=== PATIENT | female | born 1985 | race American Indian/Alaskan Native ===

== ENCOUNTER 2016-10-19 18:22 | Emergency (ER) | payer OTHER ==
[2016-10-19 18:44] VITALS: BP 139/81
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
== END 2016-10-19 23:17 | disposition home or self-care (01) ==
LOC: ED 18:22
DX: M25.512 Pain in left shoulder (principal); M54.2 Cervicalgia; M54.9 Dorsalgia, unspecified; V44.6XXA Car passenger injured in collision with heavy transport vehicle or bus in traffic accident, initial encounter; Y93.9 Activity, unspecified; Y99.9 Unspecified external cause status; Y92.410 Unspecified street and highway as the place of occurrence of the external cause
CPT/HCPCS: 99282

== ENCOUNTER 2018-10-24 13:42 | Emergency (ER) | payer OTHER ==
[2018-10-24 14:13] VITALS: BP 117/80
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
[2018-10-24 14:56] LABS: HCG Qualitative,Urine Negative (Negative)
[2018-10-24] MEDS ORDERED: TORADOL IM ONE (15:23)
--- NOTE | 2018-10-24 16:07 | Cat Scan Report ---
FINAL REPORT EXAM: CT LUMBAR SPINE WO CON HISTORY: back pain/injury TECHNIQUE: CT of the lumbar spine was performed without intravenous contrast. Reconstruction were in cluded in the coronal and sagittal planes. PRIORS: None. FINDINGS: There are five lumbar type vertebral bodies. Normal alignment. No compression fracture. The paravertebral soft tissues are normal. L1/2: No disc space loss. No spinal canal stenosis. No neural foraminal narrowing. There is mild left -sided facet arthropathy. L2/3: No disc space loss. No spinal canal stenosis. No neural foraminal narrowing. There is mild righ t-sided facet arthropathy. L3/4: No disc space loss. No spinal canal stenosis. No neural foraminal narrowing. No facet arthropat hy. L4/5: There is a mild posterior disc bulge. No spinal canal stenosis. No neural foraminal narrowing. Mild right facet arthropathy is seen. L5/S1: There is mild disc space loss and a small posterior disc bulge. No spinal canal stenosis. Ther e is mild bilateral neural foraminal narrowing. Mild facet arthropathy is seen. Post cholecystectomy. IMPRESSION: 1. No acute lumbar spine abnormality. 2. Mild degenerative changes of the lumbar spine, most severe at L5-S1 where there is mild bilateral neural foraminal narrowing. No spinal stenosis.
--- NOTE | 2018-10-24 16:16 | Cat Scan Report ---
FINAL REPORT EXAM: CT CERVICAL SPINE WO CON HISTORY: pain TECHNIQUE: CT of the cervical spine was performed without intravenous contrast. Reconstructions were included in the coronal and sagittal planes. PRIORS: None. FINDINGS: No cervical spine fracture or subluxation.Reversal of the cervical lordosis is likely related to miranda ent positioning or muscle spasm. The prevertebral soft tissues are normal. No degenerative change. No spinal canal stenosis or neural foraminal narrowing. IMPRESSION: No acute cervical spine fracture or subluxation.
== END 2018-10-24 17:25 | disposition home or self-care (01) ==
LOC: ED 13:42
DX: S16.1XXA Strain of muscle, fascia and tendon at neck level, initial encounter (principal); M54.5 Low back pain; Z90.49 Acquired absence of other specified parts of digestive tract; V89.2XXA Person injured in unspecified motor-vehicle accident, traffic, initial encounter; Y93.89 Activity, other specified; Y92.488 Other paved roadways as the place of occurrence of the external cause; Y99.8 Other external cause status
CPT/HCPCS: 72125; 72131; 81025; 96372; 99284; J1885

== ENCOUNTER 2019-02-24 19:33 | Emergency (ER) | payer OTHER ==
--- NOTE | 2019-02-25 01:40 | XRay Report ---
PROCEDURE: XR CHEST 1V AP TECHNIQUE: Chest radiograph single view. HISTORY: SOB COMPARISONS: None . FINDINGS: Heart: Normal. Mediastinum/Vessels: Normal. Lungs/Pleural space: Normal. Bony thorax: No acute osseous abnormality. Life support devices: None. IMPRESSION: No acute cardiopulmonary abnormality. This document is electronically signed by Samuel Link MD., February 25 2019 01:38:53 AM ET
--- NOTE | 2019-02-25 02:29 | Emergency Department Report ---
ED Shortness of Breath HPI - General Chief Complaint: Extremity Injury, Lower Stated Complaint: POST SURGERY LEG PAIN/LIGHTHEADED Time Seen by Provider: 02/25/19 01:03 Source: patient Mode of arrival: Ambulatory Limitations: No Limitations - History of Present Illness Initial Comments: Franchesca Arriaga...11:02 pm (DOWNTIME) Room 18 This 33-year-old female presents to ED with complaint of dizziness and shortness of breath 1 day. Patient has no other medical history. She reports that she underwent surgery for breast reduction approximately one week ago. Patient states last night she began to experience lightheadedness, cramping in the left calf, and dyspnea on exertion. Patient states the surgeon and had her taking iron pills because she lost blood during surgery. Patient reports surgery was done in the [place], [place]. Patient denies cough, fever, chest pain. Reports urinary frequency. MD Complaint: shortness of breath -: days(s) (1) Severity: moderate Improves With: nothing Worsens With: exertion Associated Symptoms: lower extremity pain Treatments Prior to Arrival: none - Related Data Home Oxygen Therapy: No Previous Rx's Medication Instructions Recorded Last Taken Type Naproxen [Naprosyn TAB] 500 mg PO BID #20 tablet 10/19/16 Unknown Rx methOCARBAMOL [Robaxin TAB] 500 mg PO BID #20 tab 10/19/16 Unknown Rx Cyclobenzaprine [Flexeril 10mg] 10 mg PO Q12H PRN #14 tablet 10/24/18 Unknown Rx Ibuprofen [Motrin] 800 mg PO Q8HR PRN #12 tablet 10/24/18 Unknown Rx Allergies Allergy/AdvReac Type Severity Reaction Status Date / Time No Known Allergies Allergy Verified 10/24/18 14:10 ED Review of Systems ROS: Stated complaint: POST SURGERY LEG PAIN/LIGHTHEADED Other details as noted in HPI Comment: All other systems reviewed and negative Constitutional: denies: chills, fever Respiratory: shortness of breath. denies: cough Cardiovascular: denies: chest pain Gastrointestinal: denies: nausea, vomiting Genitourinary: frequency Musculoskeletal: other (reports lower extremity pain and swelling) Neurological: other (reports dizziness) ED Past Medical Hx - Surgical History Hx Cholecystectomy: Yes - Social History Smoking Status: Never Smoker Substance Use Type: None - Medications Home Medications: Home Medications Medication Instructions Recorded Confirmed Last Taken Type Naproxen [Naprosyn TAB] 500 mg PO BID #20 tablet 10/19/16 Unknown Rx methOCARBAMOL [Robaxin TAB] 500 mg PO BID #20 tab 10/19/16 Unknown Rx Cyclobenzaprine [Flexeril 10mg] 10 mg PO Q12H PRN #14 tablet 10/24/18 Unknown Rx Ibuprofen [Motrin] 800 mg PO Q8HR PRN #12 tablet 10/24/18 Unknown Rx ED Physical Exam - General Limitations: No Limitations General appearance: alert, in no apparent distress, obese - Head Head exam: Present: atraumatic, normocephalic - Eye Eye exam: Present: normal appearance - ENT ENT exam: Present: mucous membranes moist - Neck Neck exam: Present: normal inspection - Respiratory Respiratory exam: Present: normal lung sounds bilaterally. Absent: respiratory distress - Cardiovascular Cardiovascular Exam: Present: regular rate, normal rhythm - GI/Abdominal GI/Abdominal exam: Present: soft. Absent: distended, tenderness - Extremities Exam Extremities exam: Present: calf tenderness. Absent: pedal edema - Neurological Exam Neurological exam: Present: alert, oriented X3, CN II-XII intact, normal gait. Absent: motor sensory deficit - Psychiatric Psychiatric exam: Present: normal affect, normal mood - Skin Skin exam: Present: warm, dry, intact, normal color. Absent: rash ED Course Vital Signs 02/25/19 00:45 Temperature 98.4 F Pulse Rate 80 Respiratory 20 Rate Blood Pressure 126/75 [Left] O2 Sat by Pulse 97 Oximetry ED Medical Decision Making - EKG Data -: EKG Interpreted by Ct EKG shows normal: sinus rhythm, axis, intervals, QRS complexes, ST-T waves Rate: normal - EKG Data Interpretation: no acute changes - Radiology Data Radiology results: report reviewed, image reviewed - Medical Decision Making 33-year-old female status post breast reduction surgery last week presents to ED with shortness of breath, dizziness, lower extremity pain and swelling. Vital signs normal temperature and ED stay, patient not tachycardic, not tachypneic, afebrile. Patient states she had an appointment with her breast surgeon earlier today, dressings were changed, and everything looked as if it were healing well. Patient has a WBC count of 20, however denies any fever or purulent drainage from breasts. Due to patient's reported symptoms, PE is definitely in the differential due to back pain or shortness of breath. Orthostatic vital signs were done which were normal, patient is not orthostatic. Hemoglobin 10.8. Chest x-ray negative for any pulmonary edema or pneumonia. EKG and troponin normal. D-dimer also normal. However, in the setting of recent surgery, leg pain and shortness of breath, decision was made to obtain CT of the chest. Unable to obtain appropriate IV access, so a VQ scan was ordered. However patient refused this study. Patient decides to leave AMA, states she is feeling much better, states she ambulated several bathroom and did not feel. Patient prefers to follow-up with her PCP tomorrow. Explained to pt the possibility of a PE, patient understands the risk of this diagnosis. AMA form signed. Vital signs normal. - Differential Diagnosis DVT, PE, pneumonia, ACS, UTI Critical care attestation.: If time is entered above; I have spent that time in minutes in the direct care of this critically ill patient, excluding procedure time. ED Disposition Clinical Impression: Lower extremity pain, left, Dyspnea, Dizziness Disposition: DC-07 LEFT AGAINST MED ADVICE Is pt being admited?: No Condition: Stable Instructions: Pulmonary Embolism (GEN), Deep Venous Thrombosis (ED), Dyspnea (ED), Dizziness (ED) Referrals: PRIMARY CARE, [Referring] - DONI Forms: AMA Form Time of Disposition: 02:28
[2019-02-25 03:20] VITALS: BP 126/75
[2019-02-25 15:46] LABS: BUN/Creatinine Ratio 30; Blood Urea Nitrogen 18 mg/dL (7-17); Calcium 8.7 mg/dL (8.4-10.2); Hemolysis Index 6
== END 2019-02-25 02:35 | disposition left against medical advice (07) ==
LOC: ED 19:33
DX: R42 Dizziness and giddiness (principal); R06.00 Dyspnea, unspecified; R06.02 Shortness of breath; R35.0 Frequency of micturition; M79.605 Pain in left leg; R22.42 Localized swelling, mass and lump, left lower limb; Z90.49 Acquired absence of other specified parts of digestive tract; Z79.899 Other long term (current) drug therapy
CPT/HCPCS: 36415; 71045; 80048; 84484; 86850; 86900; 86901; 93005; 93010